=== PATIENT | male | born 1970 | race African-American/Black ===

== ENCOUNTER 2022-11-10 13:29 | Emergency (ER) | payer SELFPAY ==
[2022-11-10] MEDS ORDERED: Acetaminophen 500 MG TAB ONE (14:21)
[2022-11-10] MEDS ORDERED: predniSONE 20 MG TAB ONE (14:21)
== END 2022-11-10 15:51 | disposition home or self-care (01) ==
LOC: ERS 13:29
DX: B34.9 Viral infection, unspecified (principal); I10 Essential (primary) hypertension; Z20.822 Contact with and (suspected) exposure to COVID-19
CPT/HCPCS: 71045; 87804; J7512; U0003; U0005